=== PATIENT | female | born 1990 ===

== ENCOUNTER 2017-10-21 00:24 | Emergency (ER) | payer SELFPAY ==
[2017-10-21 00:30] VITALS: BP 104/64
--- NOTE | 2017-10-21 03:32 | Emergency Department Report ---
ED ENT HPI - General Chief complaint: Dental/Oral Stated complaint: TOOTH ABCESS Time Seen by Provider: 10/21/17 03:12 Source: patient Mode of arrival: Ambulatory Limitations: No Limitations - History of Present Illness Initial comments: 26-year-old -Serbian female comes in reporting that she has run out of her [place]. Patient reports that she is currently being treated for tooth abscess and she has run out of her pain medication. Patient reports that she has lots of penicillin left because she often forgets to take it. Patient reports that she was seen in [place] and started her treatment there. MD complaint: tooth pain -: days(s) Location: tooth # (2) Severity scale (0 -10): 10 Quality: aching Consistency: intermittent Improves with: other medication (narcotics) Context- Dental: history of dental caries, poor dental care Associated Symptoms: gum swelling, toothache. denies: fever, cough, pain with swallowing, sore throat, tinnitus, hearing loss, discharge from ear, rhinorrhea , other - Related Data Home Medications Medication Instructions Recorded Confirmed Last Taken Penicillin Vk 500 mg PO Q6H 10/21/17 10/21/17 Unknown Previous Rx's Medication Instructions Recorded Last Taken Type Ibuprofen [Motrin 600 MG tab] 600 mg PO Q8H PRN #30 tablet 10/21/17 Unknown Rx Allergies Allergy/AdvReac Type Severity Reaction Status Date / Time No Known Allergies Allergy Unverified 10/21/17 01:56 ED Dental HPI - General Chief complaint: Dental/Oral Stated complaint: TOOTH ABCESS Time Seen by Provider: 10/21/17 03:12 Source: patient Mode of arrival: Ambulatory Limitations: No Limitations - Related Data Home Medications Medication Instructions Recorded Confirmed Last Taken Penicillin Vk 500 mg PO Q6H 10/21/17 10/21/17 Unknown Previous Rx's Medication Instructions Recorded Last Taken Type Ibuprofen [Motrin 600 MG tab] 600 mg PO Q8H PRN #30 tablet 10/21/17 Unknown Rx Allergies Allergy/AdvReac Type Severity Reaction Status Date / Time No Known Allergies Allergy Unverified 10/21/17 01:56 ED Review of Systems ROS: Stated complaint: TOOTH ABCESS Other details as noted in HPI Constitutional: denies: chills, fever ENT: dental pain Respiratory: denies: cough, shortness of breath, wheezing ED Past Medical Hx - Past Medical History Previous Medical History?: No - Surgical History Past Surgical History?: No - Social History Smoking Status: Never Smoker Substance Use Type: Marijuana - Medications Home Medications: Home Medications Medication Instructions Recorded Confirmed Last Taken Type Ibuprofen [Motrin 600 MG tab] 600 mg PO Q8H PRN #30 tablet 10/21/17 Unknown Rx Penicillin Vk 500 mg PO Q6H 10/21/17 10/21/17 Unknown History ED Physical Exam - General Limitations: No Limitations General appearance: alert, in no apparent distress - Head Head exam: Present: atraumatic, normocephalic - Expanded ENT Exam Expanded Teeth exam: Present: dental tenderness # (2), gingival enlargement - Neck Neck exam: Present: full ROM. Absent: lymphadenopathy ED Course Vital Signs 10/21/17 00:22 Temperature 98.3 F Pulse Rate 76 Respiratory 16 Rate Blood Pressure 104/64 O2 Sat by Pulse 98 Oximetry ED Medical Decision Making - Medical Decision Making Patient has been evaluated by this provider fast track. Encourage patient to complete her antibiotics as this can also be a reason why she is in pain. Prescription for ibuprofen 600 mg for pain management. We'll give patient a handout on local dentists she can follow-up with. Critical care attestation.: If time is entered above; I have spent that time in minutes in the direct care of this critically ill patient, excluding procedure time. ED Disposition Clinical Impression: Dental abscess, Non-compliant patient Disposition: [id number] TO HOME OR SELFCARE Is pt being admited?: No Does the pt Need Aspirin: No Condition: Stable Instructions: Dental Abscess (ED) Additional Instructions: Please continue with your penicillin antibiotic to treat Dental abscess. Ibuprofen for pain management. Referral to community dentist. Prescriptions: Ibuprofen [Motrin 600 MG tab] 600 mg PO Q8H PRN #30 tablet PRN Reason: Pain Referrals: PRIMARY CARE, [Primary Care Provider] - 3-5 Days [facility] [Outside] - 3-5 Days [facility] [Outside] - 3-5 Days
[2017-10-21] MEDS ORDERED: MOTRIN PO ONE ×2 (03:52→03:57)
== END 2017-10-21 04:00 | disposition home or self-care (01) ==
LOC: ED 00:24
DX: K04.7 Periapical abscess without sinus (principal); F12.10 Cannabis abuse, uncomplicated; Z91.19 Patient's noncompliance with other medical treatment and regimen
CPT/HCPCS: 99282